=== PATIENT | female | born 2000 | race Caucasian/White ===

== ENCOUNTER 2018-05-17 21:27 | Emergency (ER) | payer SELFPAY ==
[~2018-05-17] VITALS: Ht 165.1 cm; Wt 54.5 kg
[2018-05-17 21:32] VITALS: Ht 165.1 cm; Wt 54.5 kg
[2018-05-17 22:22] LABS: APPEARANCE CLEAR (CLEAR); BILIRUBIN NEGATIVE (NEGATIVE); COLOR YELLOW (YELLOW); GLUCOSE NEGATIVE (NEGATIVE); KETONE NEGATIVE (NEGATIVE); NITRITE NEGATIVE (NEGATIVE); PROTEIN NEGATIVE (NEGATIVE); UROBILINOGEN NORMAL (NORMAL)
[2018-05-17 22:23] LABS: BACTERIA MODERATE /hpf (NONE SEEN); EPITHELIAL CELLS 0-5 /hpf (0-5); RED CELLS - URINE OCC /hpf (0-5); WHITE CELLS - URINE 0-5 /hpf (0-5)
[2018-05-17 22:24] LABS: HCG URINE NEGATIVE (NEGATIVE)
[2018-05-17] MEDS ORDERED: MACROBID100 MG PO (22:42)
[2018-05-17 22:55] VITALS: BP 122/79
== END 2018-05-17 22:55 | disposition home or self-care (01) ==
LOC: D.ER 21:27
PROVIDERS: Family Medicine
DX: N39.0 Urinary tract infection, site not specified (principal); N76.0 Acute vaginitis; B96.89 Other specified bacterial agents as the cause of diseases classified elsewhere

== ENCOUNTER 2019-11-30 07:26 | Inpatient (IN) | payer MEDICAID ==
[~2019-11-30] VITALS: Ht 152.4 cm; Wt 63.6 kg
[~2019-11-30 07:26] MED LIST: MACROBID100 MG PO
[2019-11-30 08:13] LABS: BILIRUBIN NEGATIVE (NEGATIVE); HCG URINE NEGATIVE (NEGATIVE); KETONE SMALL mg/dL (NEGATIVE); NITRITE NEGATIVE (NEGATIVE); UROBILINOGEN NORMAL mg/dL (< 2)
[2019-11-30 08:18] LABS: BACTERIA MODERATE HPF (NONE SEEN); WHITE CELLS - URINE 0-5 HPF (0-4)
[2019-11-30 08:22] LABS: BASOPHILS 0.1 % (0-2); EOSINOPHILS 0.3 % (0-7); HEMOGLOBIN 11.9 g/dL (12-16); IMMATURE GRANULOCYTES 0.2 % (0-5); LYMPHOCYTES 9.3 % (15-50); MCH 27.7 pg (26.0-34.0); MCHC 33.1 g/dL (31.0-37.0); MCV 83.7 fL (80.0-100.0); MEAN PLATELET VOLUME 9.5 fL (7.4-10.4); MONOCYTES 7.3 % (2-11); NEUTROPHILS 82.8 % (40-80); PLATELET COUNT 369 10x3/uL (130-400); RDW 11.9 % (11.5-14.5); WBC 12.3 10x3/uL (4.8-10.8)
[2019-11-30 08:30] LABS: CALC OSMOLALITY 271 mosm/kg (275-300); CALCIUM 8.7 mg/dL (8.5-10.1); CARBON DIOXIDE 26.9 mmol/L (21.0-32.0); CHLORIDE - SERUM 100 mmol/L (98-107); CREATININE - SERUM 0.7 mg/dL (0.6-1.3); GLUCOSE 97 mg/dL (74-106); POTASSIUM - SERUM 3.5 mmol/L (3.5-5.1); SODIUM 136 mmol/L (136-145); UREA NITROGEN 12 mg/dL (7-18); eGFR NON AFRICAN AMERICAN > 90 mL/min (90-120)
[2019-11-30 08:39] LABS: ALBUMIN 3.9 g/dL (3.4-5.0); ALKALINE PHOSPHATASE 64 U/L (30-120); ALT (SGPT) 15 U/L (10-68); AMYLASE - SERUM 42 U/L (25-115); BILIRUBIN - TOTAL 1.28 mg/dL (0.2-1.3); LIPASE 64 U/L (73-393); PROTEIN - SERUM 7.3 g/dL (6.4-8.2); TROPONIN-I < 0.017 ng/mL (0.000-0.060)
--- NOTE | 2019-11-30 09:41 | NUR ---
PT BACK IN BED RESTING IN POSITION OF COMFORT AND SAFETY AT THIS TIME, WITH NO COMPLAINTS OR CONCERNS NOTED. PT REPORTS A DECREASE IN HER PAIN SINCE RECEIVING HER PAIN MEDICATION. IV FLUIDS RUNNING AT THIS TIME.
--- NOTE | 2019-11-30 10:56 | NUR ---
ATTEMPTED TO CALL REPORT TO ESMER EATON IN [facility]. PER UMA SHE NEEDS TO CALL THE RABBIT DRESSER AND DISCUSS THE PTS ADMISSION D/T HER HAVING APPENDICITIS WELL HER HAVING PID. ESMER EATON IS TO CALL BACK WITH ANY CHANGES.
--- NOTE | 2019-11-30 11:10 | NUR ---
PER ESMER MEYER THE PT IS NO LONGER TO BE ADMITTED TO [facility] D/T HER HAVING APPENDICITIS. PT IS TO GO TO SURGERY, WAITING TO HEAR WHEN PT IS TO GO TO SURGERY.
--- NOTE | 2019-11-30 17:37 | NUR ---
1735 REPORT GIVEN TO MIGUEL ON MED SURG. NAUSEA RESOLVED AND ÁLVARO ICE CHIPS
--- NOTE | 2019-11-30 18:20 | NUR ---
[facility]. A&O. C/O PAIN 10/02, BILINGUAL RECRUITER DILAUDID ACTIVE AT THIS TIME. NO S/S OF ACUTE DISTRESS NOTED. IV TO RIGHT AC, NS INFUSING @ 100ML/HR. SITE PATENT WITHOUT REDNESS OR SWELLING. MOTHER AT BEDSIDE. CALL LIGHT IN REACH. WILL CONTINUE TO MONITOR.
--- NOTE | 2019-11-30 19:56 | NUR ---
REPORT RECIEVED AND ROUNDING COMPLETE. PATIENT LAYING IN BED IN LOW FOWLERS, RIGHT FOREARM PIV THAT IS PATENT AND RUNNING FLUIDS AT THIS TIME. PAIN CONTROLLED BY TONGUE CARRIER. NO NEEDS VOICED AT THIS TIME. PATIENT IS ALERT AND ORIENTED X4. NO DISTRESS NOTED. CALL LIGHT WITHIN REACH AND BED IN LOWEST LOCKED POSITION.
[2019-11-30 20:00] VITALS: BP 117/62
[2019-11-30 23:07] VITALS: Ht 152.4 cm; Wt 63.6 kg
[2019-12-01 04:00] VITALS: BP 90/47
[2019-12-01 04:35] LABS: BASOPHILS 0 % (0-2); EOSINOPHILS 0 % (0-7); HEMATOCRIT 29.9 % (36.0-48.0); HEMOGLOBIN 9.7 g/dL (12-16); IMMATURE GRANULOCYTES 0.2 % (0-5); LYMPHOCYTES 3.4 % (15-50); MCH 27.1 pg (26.0-34.0); MCHC 32.4 g/dL (31.0-37.0); MCV 83.5 fL (80.0-100.0); MEAN PLATELET VOLUME 9.6 fL (7.4-10.4); MONOCYTES 4.7 % (2-11); NEUTROPHILS 91.7 % (40-80); PLATELET COUNT 333 10x3/uL (130-400); RBC 3.58 10x6/uL (4.00-5.40); RDW 11.7 % (11.5-14.5)
[2019-12-01 04:47] LABS: WBC 15.4 10x3/uL (4.8-10.8)
[2019-12-01 04:57] LABS: ALKALINE PHOSPHATASE 54 U/L (30-120); ALT (SGPT) 15 U/L (10-68); BILIRUBIN - TOTAL 0.52 mg/dL (0.2-1.3); CALCIUM 7.9 mg/dL (8.5-10.1); CHLORIDE - SERUM 104 mmol/L (98-107); CREATININE - SERUM 0.6 mg/dL (0.6-1.3); GLUCOSE 139 mg/dL (74-106); MAGNESIUM - SERUM 1.8 mg/dL (1.8-2.4); PHOSPHOROUS 3.6 mg/dL (2.5-4.9); POTASSIUM - SERUM 3.8 mmol/L (3.5-5.1); PROTEIN - SERUM 6.4 g/dL (6.4-8.2); SODIUM 136 mmol/L (136-145); eGFR NON AFRICAN AMERICAN > 90 mL/min (90-120)
[2019-12-01 04:59] LABS: ALBUMIN 2.8 g/dL (3.4-5.0); CALC OSMOLALITY 271 mosm/kg (275-300); UREA NITROGEN 7 mg/dL (7-18)
--- NOTE | 2019-12-01 07:15 | NUR ---
REC'D IN BED WITH EYES OPEN WATCHING TV. RESP EVEN AND UNLABORED WITH NO DISTRESS NOTED. CAN EXPRESS NEEDS AND WANTS. NO C/O NOTED OR VOICED AT THIS TIME. ASSESSMENT COMPLETED. FAMILY MEMBER AND C/L IN REACH AT BEDSIDE.
[2019-12-01 09:22] VITALS: BP 99/44
--- NOTE | 2019-12-01 10:54 | OP ---
PATIENT NAME: TERRY SKELTON MEDICAL RECORD: [id number] :98 LOCATION:D.[id number] ADMISSION DATE:11/30/19 SURGEON: NATHANIEL RETANA MD DATE OF OPERATION: 11/30/2019 PREOPERATIVE DIAGNOSIS: Acute appendicitis with localized peritonitis. POSTOPERATIVE DIAGNOSIS: Acute appendicitis with localized peritonitis. The appendix was gangrenous, ruptured, and had formed an abscess. PROCEDURE: Laparoscopic appendectomy. SURGEON: Nathaniel Retana MD ASSISTANTS: Lyn Dow Pending Sale To [facility]. BLOOD LOSS: Less than 25 cc. ANESTHESIA: General endotracheal. INDICATIONS FOR THE PROCEDURE: The risks, possible complications and alternatives to the procedure were explained to the patient and her mother. They elected to proceed. The discussion specifically included, but was not limited to, bleeding requiring emergency reoperation, infection, possibility of an open procedure and the possibility that the appendix would be normal and in that event, I would still remove this normal appendix in order to avoid diagnostic confusion in the future should the patient have recurrence or persistence of abdominal pain. OPERATIVE COURSE: The patient was conveyed the operating room urgently on 11/30/2019. General anesthesia was induced by the anesthesia staff. The abdomen was sterilely prepped and draped. An incision was accomplished in the midline within the umbilicus. A Veress needle was inserted through a small skin cornelia in the left upper quadrant. CO2 insufflation was begun. Once a sufficient pneumoperitoneum had been achieved, a 5-mm trocar was inserted in the left upper quadrant. Under direct internal vision utilizing the endoscopic camera, a 12-mm trocar was inserted through the incision at the umbilicus. Two 5-mm trocars were inserted, one in the right groin, one in the left groin. During insertion of the Veress needle and all trocars, there appeared to have been no injury to the bowels, any intraperitoneal or retroperitoneal structures. I identified some fluid down in the pelvis that was blood-tinged. This was aspirated. I identified the appendix and mobilized it with difficulty. I identified a walled off abscess between the appendix and the right pelvic side wall. The appendix was draped down into the pelvis. A portion of the abscess cavity included the right tube and ovary. There was a cyst on the right ovary panel which was enlarged. I was able to bluntly mobilize the appendix. A window was created in the mesoappendix. I divided and stapled off the tip of the cecum. I then took down the mesoappendix utilizing the laparoscopic EnSeal device as well as a single firing of the Endo-ASHLEIGH stapler with a white load. The appendix had been divided with a blue load. The appendix was placed within a bag retrieval device and was withdrawn through OPERATIVE REPORT [id number] TERRY SKELTON T the umbilical fascial incision. The 12-mm trocar was replaced and the abdomen reinsufflated. I irrigated and aspirated in the pelvis as well as right lower quadrant. There was no bleeding even at low pressure of 8. Utilizing the Juancho-Jenna suture closure device and 0 Vicryl sutures, I closed the fascia at the umbilicus. The skin at the umbilicus was approximated with a single intracuticular 3-0 Vicryl. The skin at the umbilicus was approximated with multiple interrupted 4-0 Vicryl Rapide sutures. The 2 groin incisions were closed with interrupted intracuticular 3-0 Vicryls. Marcaine was injected into subcutaneous tissue around the trocar sites for postoperative analgesia. Sterile dressings were applied. The patient was then extubated and conveyed to post-anesthesia care unit where she was in stable condition. I believe that this appendicitis is likely 5 or 6 days old at least. The patient is going to require IV antibiotics while in the hospital. I anticipate an inpatient stay for intravenous antibiotics. TRANSINT:[id number] Voice Confirmation ID: [id number] DOCUMENT ID: [id number] NATHANIEL RETANA MD at 1054 CC: [id number] DICTATION DATE: 11/30/191718 CLINICAL OPERATIONS MANAGER: 12/01/19 0132 ADM IN [facility] [address] [place] [address]
[2019-12-01 13:19] VITALS: BP 93/50
--- NOTE | 2019-12-01 16:29 | NUR ---
WAS MEDICATED WITH OXY PER ORDERS FOR C/I ABD PAIN RATING 8/10 ON PAIN SCALE. C/L IN REACH AT BEDSIDE.
[2019-12-01 17:42] VITALS: BP 118/55
--- NOTE | 2019-12-01 19:09 | NUR ---
I have reviewed this patient and I concur with the Shift Assessment completed by the Licensed Practical Nurse today this shift.
[2019-12-01 20:00] VITALS: BP 95/48
[2019-12-02] VITALS: BP 110/64
[2019-12-02 04:00] VITALS: BP 105/47
[2019-12-02 07:19] LABS: BASOPHILS 0.1 % (0-2); EOSINOPHILS 0.4 % (0-7); HEMATOCRIT 28.7 % (36.0-48.0); HEMOGLOBIN 9.2 g/dL (12-16); IMMATURE GRANULOCYTES 0.3 % (0-5); LYMPHOCYTES 8.8 % (15-50); MCH 26.7 pg (26.0-34.0); MCHC 32.1 g/dL (31.0-37.0); MCV 83.4 fL (80.0-100.0); MEAN PLATELET VOLUME 9.7 fL (7.4-10.4); MONOCYTES 7.6 % (2-11); NEUTROPHILS 82.8 % (40-80); PLATELET COUNT 326 10x3/uL (130-400); RBC 3.44 10x6/uL (4.00-5.40); RDW 11.9 % (11.5-14.5)
[2019-12-02 07:20] LABS: WBC 10.2 10x3/uL (4.8-10.8)
--- NOTE | 2019-12-02 07:38 | NUR ---
PATIENT IN BED. DENIES NEEDS AT THIS TIME. FAMILY AT BEDSIDE. BED LOW POSITION, CALL LIGHT IN REACH. WILL CONTINNUE TO MONITOR.
[2019-12-02 09:29] VITALS: BP 117/55
[2019-12-02 13:03] VITALS: BP 110/57
[2019-12-02] MEDS ORDERED: TYLENOL #4 W/CO1 TAB PO (14:48)
[2019-12-02] MEDS ORDERED: CIPRO500 MG PO (14:48)
[2019-12-02] MEDS ORDERED: FLAGYL500 MG PO (14:53)
[2019-12-02 16:34] VITALS: BP 120/51
[2019-12-02 20:00] VITALS: BP 100/60
--- NOTE | 2019-12-02 22:00 | NUR ---
PATIENT ALERT ORIENTED. COMPLAINS OF NAUSEA. REQUESTING TO WAIT ON TAKING MEDS.PATIENT REPORTED HAVING SMALL AMOUNT OF EMESIS WHICH "BURNED MY THROAT REALLY BAD". ZOFRAN GIVEN PER ORDERS. PATIENT ATTEMPTING TO EAT SALTINE CRACKERS AT THIS TIME.
--- NOTE | 2019-12-02 23:00 | NUR ---
PATIENT TOOK PM MEDS EXCEPT TORADOL. STATES "MOM THINKS THAT MAY BE WHAT IS MAKING ME SICK". STATES FEELING A LITTLE BETTERS. BS HYPOACTIVE.
[2019-12-03 04:00] VITALS: BP 112/54
--- NOTE | 2019-12-03 08:10 | NUR ---
RESTING IN BED, NO DISTRESS NOTED, MOTHER IN ROOM, CONT TO MONITOR TEMP
[2019-12-03 09:21] VITALS: BP 120/52
[2019-12-03 14:25] VITALS: BP 112/59
--- NOTE | 2019-12-03 14:39 | NUR ---
REVIEWED DC WITH PT, VOICED NO CONCERNS, AWAITING RIDE
--- NOTE | 2019-12-03 15:00 | NUR ---
WALKED FROM UNIT WITH DC PAPERS
== END 2019-12-03 15:00 | disposition home or self-care (01) | DRG 343 ==
LOC: D.ER 07:26 → D.WS 08:50 → D.MS 08:50 → D.EDHOLD 08:50 → D.WS 10:55 → D.MS 17:52
PROVIDERS: Family Medicine; Surgery; ADMIT Obstetrics & Gynecology; ATTEND Obstetrics & Gynecology
PROC: 0DTJ4ZZ Resection of Appendix, Percutaneous Endoscopic Approach (ICD-10-PCS; principal; 2019-11-30 12:00)
DX: K35.30 Acute appendicitis with localized peritonitis, without perforation or gangrene (principal); N73.9 Female pelvic inflammatory disease, unspecified; D72.829 Elevated white blood cell count, unspecified

== ENCOUNTER 2020-08-07 06:10 | Day surgery (SDC) | payer MEDICAID ==
[2020-08-03 12:49] LABS: HEMATOCRIT 37.3 % (36.0-48.0); HEMOGLOBIN 12.4 g/dL (12-16); MCH 28.2 pg (26.0-34.0); MCHC 33.2 g/dL (31.0-37.0); MCV 84.9 fL (80.0-100.0); MEAN PLATELET VOLUME 8.5 fL (7.4-10.4); RBC 4.39 10x6/uL (4.00-5.40); RDW 13.4 % (11.5-14.5)
[~2020-08-07] VITALS: Ht 165.1 cm; Wt 65.3 kg
--- NOTE | ~2020-08-07 | OP ---
PATIENT NAME: TERRY SKELTON MEDICAL RECORD: [id number] :98 LOCATION:D.OPS ADMISSION DATE: SURGEON: TANIA MORIN DO DATE OF OPERATION: 08/07/2020 PREOPERATIVE DIAGNOSIS: Vulvar lesion. POSTOPERATIVE DIAGNOSIS: Vulvar lesion. PRIMARY SURGEON: Tania Morin DO ANESTHESIA: General LMA. PROCEDURE: Vulvar biopsy and vulvar culture. Exam under anesthesia. FINDINGS: Right labia majora with multiple ulcerated lesions, ulcerated plaque-like lesion in the midline around the clitoris, ulcerated lesion at the midline perineum. Normal appearing vaginal vault. Normal appearing cervix. SPECIMENS: Right mid labia majora biopsy, right superior labia majora biopsy, left superior labia majora biopsy. Anaerobic, aerobic and HSV/mycobacterium cultures taken. ESTIMATED BLOOD LOSS: 10 cc. IV FLUIDS: 100 cc. COMPLICATIONS: None. CONDITION: Stable. DESCRIPTION OF PROCEDURE: The risks, benefits, alternatives and indications of the procedure were discussed with the patient. She voiced understanding of the procedure and signed the consent. She was taken to the OR where general anesthesia was administered and found to be adequate. She was placed in the dorsal lithotomy position. She was prepped and draped in normal sterile fashion. A speculum was placed in the posterior aspect of the vagina and no abnormalities were noted in the vagina or at the level of the cervix. No lesions were noted inside the vagina. The above findings were noted externally on the external genitalia. Lidocaine was placed at the level of the lesions and aerobic, anaerobic and HSV and Mycobacterium cultures were taken and sent. A punch biopsy was used to take a right labia majora biopsy at one of the lesions in the mid right labia majora as well as at the superior portion of the ulcerated plaque on the right side and on the left side and all biopsies were sent to pathology. The biopsy sites were closed with 3-0 Monocryl and hemostatic with silver nitrate. Antibiotic ointment was placed. All needle, lap, sponge and instrument counts were correct times 2. The patient tolerated the procedure well and she was awakened and taken to the recovery room in stable condition. TRANSINT:[id number] Voice Confirmation ID: [id number] DOCUMENT ID: [id number] OPERATIVE REPORT [id number] TERRY SKELTON TANIA MORIN DO CC: [id number] DICTATION DATE: 08/07/20 0847 SHIP ERECTOR: 08/07/20 0938 [facility] [address] [place] [id number]
[~2020-08-07 06:10] MED LIST changes: +BACTRIM DS TAB1 EAC1 PO; +CIPRO500 MG PO; +FLAGYL500 MG PO; +LEVOFLOXACIN500 MG PO; +LO LOESTRIN TAB 1-1; +TYLENOL #4 W/CO1 TAB PO
[2020-08-07 06:35] LABS: HCG URINE NEGATIVE (NEGATIVE)
[2020-08-07 06:38] VITALS: BP 113/58; Ht 165.1 cm; Wt 65.3 kg
--- NOTE | 2020-08-07 10:39 | NUR ---
3726 - PATIENT UP TO BATHROOM TO VOID. STATED THAT VULVAR AREA IS STILL NUMB WITH NO PAIN. PAT HER AREA DRY. NO BLEEDING NOTED.
== END 2020-08-07 10:30 | disposition home or self-care (01) ==
LOC: D.OPS 06:10
PROVIDERS: Anesthesiology; ATTEND Student in an Organized Health Care Education/Training Program
DX: N90.89 Other specified noninflammatory disorders of vulva and perineum (principal)